=== PATIENT | female | born 1990 | race Caucasian/White ===

== ENCOUNTER 2017-02-18 09:54 | Emergency (ER) | payer BC ==
[2017-02-18 09:57] VITALS: BMI 27.1
[2017-02-18 10:00] VITALS: BP 107/69; PULSE 100; RESP 17; TEMP 97.7; O2SAT 100
--- NOTE | 2017-02-18 10:17 | ED PDOC ---
HPI: Abdomen Time Seen by Provider: 02/18/17 10:06 Chief Complaint (Nursing): Abdominal Pain Additional Complaint(s): Patient is a 26 y/o F, 16 weeks , with confirmed IUP with regular ob/ leadership program associate monitoring in this , presenting with LLQ pain. Patient reports increasing pain over last day. Denies fever, nausea/vomiting, diarrhea/ constipation, vaginal bleeding, vaginal discharge or dysuria. Past Medical History Vital Signs: Last Vital Signs Temp 97.7 F 02/18/17 09:57 Pulse 100 H 02/18/17 09:57 Resp 17 02/18/17 09:57 BP 107/69 02/18/17 09:57 Pulse Ox 100 02/18/17 15:27 - Medical History PMH: Asthma (last attack one year ago), Depression Denies: Chronic Kidney Disease - Family History Family History: States: No Known Family Hx - Home Medications Home Medications: Ambulatory Orders Medication Instructions Recorded ALPRAZolam [Xanax] 0.25 mg PO BID 04/03/16 Dexlansoprazole [Dexilant] 60 mg PO DAILY 04/03/16 Nitrofurantoin Macrocrystals 100 mg PO BID #14 cap 02/18/17 [Macrobid] - Allergies Allergies/Adverse Reactions: Allergies Allergy/AdvReac Type Severity Reaction Status Date / Time diphenhydramine HCl Allergy RASH Verified 04/03/16 12:09 [From Benadryl] Penicillins Allergy RASH Verified 04/03/16 12:08 Review of Systems ROS Statement: Except As Marked, All Systems Reviewed And Found Negative Constitutional: Negative for: Fever, Chills Cardiovascular: Negative for: Chest Pain, Palpitations, Edema, Light Headedness Respiratory: Negative for: Cough, Shortness of Breath, SOB with Exertion Gastrointestinal: Negative for: Nausea, Vomiting, Abdominal Pain, Diarrhea, Constipation Genitourinary Female: Positive for: Pelvic Pain (LLQ). Negative for: Dysuria, Vaginal Discharge, Vaginal Bleeding Neurological: Negative for: Altered Mental Status, Headache Physical Exam - Reviewed Nursing Documentation Reviewed: Yes Vital Signs Reviewed: Yes - Physical Exam Appears: Positive for: Well, Non-toxic Head Exam: Positive for: ATRAUMATIC, NORMAL INSPECTION, NORMOCEPHALIC Skin: Positive for: Normal Color Eye Exam: Positive for: Normal appearance Neck: Positive for: Normal, Painless ROM Cardiovascular/Chest: Positive for: Regular Rate, Rhythm Respiratory: Positive for: Normal Breath Sounds. Negative for: Rhonchi, Stridor , Wheezing Gastrointestinal/Abdominal: Positive for: Soft, Other (gravid abdomen). Negative for: Tenderness, Mass, Distended Back: Positive for: Normal Inspection. Negative for: L CVA Tenderness, R CVA Tenderness Extremity: Positive for: Normal ROM - Laboratory Results Result Diagrams: 02/18/17 10:22 02/18/17 10:22 - ECG O2 Sat by Pulse Oximetry: 100 Medical Decision Making Medical Decision Making: Patient is well appearing. She is complaining of L sided abdominal pain, that could be consistent with round ligament pain. She has no vaginal bleeding. Will get ultrasound and evaluate for uti. On reevaluation, K low and replacement ordered. Otherwise labs grossly normal. UA negative for leukocytes and nitrates but positive rare bacteria and due to will treat. UTERUS: Gestational sac: A single viable intrauterine gestation identified with average ultrasonic age of 17 weeks 2 days versus 16 weeks 5 days based on prior LMP. Heart rate: 143 bpm. age (Ultrasound estimated): As above [place]-gestational hemorrhage: None apparent. Date of delivery (Ultrasound estimated) : 07/27/2017. An anterior fundal placenta is appreciated without previa or related hemorrhage. CERVIX: Long and closed. No cervical abnormality seen. RIGHT OVARY: Not identified however no suspicious right adnexal finding is appreciated. LEFT OVARY: Measures 2.6 x 1.7 x 2.1 cm. No solid mass. Normal spectral analysis with venous and arterial blood flow captured. No torsion pattern appreciable. FREE FLUID: None. OTHER FINDINGS: None. IMPRESSION: 1. A single viable intrauterine gestation is identified with average ultrasonic age of 17 weeks 2 days. No definite placental hemorrhage or previa appreciable. 2. Unremarkable left ovary with no sonographic pattern to suggest torsion. 3. Right ovary is not identified however there are no suspicious right adnexal findings at this time. On reevaluation, patient feels well and continues to have soft NT/ND abdomen. She was given detailed return instructions. Disposition - Clinical Impression Clinical Impression: Abdominal pain during , UTI (urinary tract infection) - Disposition Disposition: Routine/Home Disposition Time: 13:35 Condition: GOOD Additional Instructions: Follow up with lead systems engineer within 2 days. Return to ED if condition worsens. Take full course of antibiotics. Prescriptions: Nitrofurantoin Macrocrystals [Macrobid] 100 mg PO BID #14 cap Instructions: Abdominal Pain in (ED) Forms: [facility] (Mexican), [facility] ED School/Work Excuse
[2017-02-18] MEDS: Sodium Chloride 0.9% 1,000 ML IV SCH (10:26)
[2017-02-18 10:32] LABS: BASO # 0.1 K/uL (0.0-0.2); BASO % 0.6 % (0.0-2.0); EOS # 0.1 K/uL (0.0-0.7); EOS % 0.8 % (0.0-4.0); HEMATOCRIT 32.7 % (34.0-47.0); LYMPH # 1.4 K/uL (1.0-4.3); LYMPH % 15.9 % (20.0-40.0); MEAN CELL VOLUME 84.2 fl (81.0-99.0); MEAN CORPUSCULAR HEMOGLOBIN 27.8 pg (27.0-31.0); MEAN PLATELET VOLUME 7.2 fl (7.2-11.7); MONO # 0.6 K/uL (0.0-0.8); NEUT # 6.8 K/uL (1.8-7.0); NEUT % 75.7 % (50.0-75.0); RED CELL DISTRIBUTION WIDTH 13.8 % (11.5-14.5)
[2017-02-18 10:55] LABS: ALB/GLOB RATIO 1.2 (1.0-2.1); ALKALINE PHOSPHATASE 57 U/L (38-126); ALT/SGPT 36 U/L (9-52); AST/SGOT 37 U/L (14-36); BILIRUBIN,TOTAL 0.2 mg/dl (0.2-1.3); BLOOD UREA NITROGEN 9 mg/dl (7-17); CALCIUM 9.3 mg/dL (8.4-10.2); CARBON DIOXIDE 21 mmol/L (22-30); CHLORIDE 106 mmol/L (98-107); GFR AFRICAN-AMERICAN > 60; GLUCOSE,RANDOM 58 mg/dL (65-105); LIPASE 39 U/L (23-300); POTASSIUM 3.3 MMOL/L (3.6-5.0); SODIUM 136 mmol/l (132-148)
[2017-02-18 10:55] LABS: RBC URINE 5 /hpf (0-3); URINE BACTERIA RARE (<OCC); URINE BILIRUBIN NEGATIVE (NEGATIVE); URINE COLOR YELLOW (YELLOW); URINE GLUCOSE (UA) NEG (Normal); URINE KETONE TRACE mg/dL (NEGATIVE); URINE LEUKOCYTE ESTERASE NEG Leu/uL (Negative); URINE PROTEIN NEGATIVE (NEGATIVE); URINE UROBILINOGEN 0.2-1.0 mg/dL (0.2-1.0); WBC URINE 2 /hpf (0-5)
[2017-02-18 10:56] LABS: URINE BLOOD SMALL (NEGATIVE)
--- NOTE | 2017-02-18 13:36 | US ---
PROCEDURE: OB Pelvic Ultrasound HISTORY: 16 weeks , LLQ, abdominal pain LMP reported 07/21/2017. COMPARISON: None available. FINDINGS: UTERUS: Gestational sac: A single viable intrauterine gestation identified with average ultrasonic age of 17 weeks 2 days versus 16 weeks 5 days based on prior LMP. Heart rate: 143 bpm. age (Ultrasound estimated): As above [place]-gestational hemorrhage: None apparent. Date of delivery (Ultrasound estimated) : 07/27/2017. An anterior fundal placenta is appreciated without previa or related hemorrhage. CERVIX: Long and closed. No cervical abnormality seen. RIGHT OVARY: Not identified however no suspicious right adnexal finding is appreciated. LEFT OVARY: Measures 2.6 x 1.7 x 2.1 cm. No solid mass. Normal spectral analysis with venous and arterial blood flow captured. No torsion pattern appreciable. FREE FLUID: None. OTHER FINDINGS: None. IMPRESSION: 1. A single viable intrauterine gestation is identified with average ultrasonic age of 17 weeks 2 days. No definite placental hemorrhage or previa appreciable. 2. Unremarkable left ovary with no sonographic pattern to suggest torsion. 3. Right ovary is not identified however there are no suspicious right adnexal findings at this time. Preliminary discussion of the findings is been made by telephone with Dr. Viramontes 02/18/2017 12:59 p.m..
[2017-02-18] MEDS: Potassium Chloride 20 mEq ER Tab PO STA (13:46)
== END 2017-02-18 13:54 | disposition home or self-care (01) ==
LOC: H.ER 09:54
DX: O23.42 Unspecified infection of urinary tract in pregnancy, second trimester (principal); Z88.0 Allergy status to penicillin
CPT/HCPCS: 76815; 80053; 81003; 81025; 83690; 85025; 99282; J7040

== ENCOUNTER 2017-03-31 20:12 | Emergency (ER) | payer BC ==
[2017-03-31 20:12] VITALS: BMI 27.1
[2017-03-31 20:21] VITALS: TEMP 98.5; O2SAT 100
[2017-03-31 21:08] VITALS: RESP 18
[2017-03-31] MEDS ORDERED: Albuterol 0.083% Inhal Sol (2.5 mg/3 mL) UD INH ONE (21:32)
--- NOTE | 2017-03-31 21:53 | ED PDOC ---
HPI: CCC, URI, Sore Throat Time Seen by Provider: 03/31/17 20:30 Chief Complaint (Nursing): Shortness Of Breath Chief Complaint (Provider): Nasal congestion History Per: Patient History/Exam Limitations: no limitations Have you had recent travel within the past 21 days to any of the following countries: [place], [place], [place] or [place]?: No Onset/Duration Of Symptoms: Days Current Symptoms Are (Timing): Still Present Location Of Pain: Sinus/es Sick Contacts (Context): None Associated Symptoms: Fever (subjective), Cough, Nasal Congestion Additional History Per: Patient Additional Complaint(s): 26yo female, currently 22 weeks , past medical history of asthma, presents to the ED for evaluation of cold and nasal congestion associated with slight cough for the past couple days. Patient reports she has a subjective fever as well; she denies any chest pain, shortness of breath, vomiting or diarrhea. Patient also denies any abdominal pain, pelvic pain, urinary symptoms , vaginal bleeding. Patient also states she took Tylenol around 1830 today with mild resolution of her symptoms. She offers no other medical complaints. Past Medical History Reviewed: Historical Data, Nursing Documentation, Vital Signs Vital Signs: Last Vital Signs Temp 98.5 F 03/31/17 20:16 Pulse 96 H 04/01/17 00:00 Resp 18 04/01/17 00:00 BP 110/68 04/01/17 00:00 Pulse Ox 100 04/01/17 00:00 - Medical History PMH: Asthma (last attack one year ago), Depression Denies: Chronic Kidney Disease - Surgical History Surgical History: No Surg Hx - Family History Family History: States: No Known Family Hx - Social History Current smoker - smoking cessation education provided: No Ex-Smoker (has not smoked in the last 12 months): No Alcohol: None Drugs: Denies - Home Medications Home Medications: Ambulatory Orders Medication Instructions Recorded ALPRAZolam [Xanax] 0.25 mg PO BID 04/03/16 Dexlansoprazole [Dexilant] 60 mg PO DAILY 04/03/16 Nitrofurantoin Macrocrystals 100 mg PO BID #14 cap 02/18/17 [Macrobid] - Allergies Allergies/Adverse Reactions: Allergies Allergy/AdvReac Type Severity Reaction Status Date / Time diphenhydramine HCl Allergy RASH Verified 04/03/16 12:09 [facility] Penicillins Allergy RASH Verified 04/03/16 12:08 Review of Systems ROS Statement: Except As Marked, All Systems Reviewed And Found Negative Constitutional: Positive for: Fever (tactile) ENT: Positive for: Nose Congestion Cardiovascular: Negative for: Chest Pain Respiratory: Positive for: Cough. Negative for: Shortness of Breath Gastrointestinal: Negative for: Abdominal Pain Genitourinary Female: Negative for: Vaginal Discharge, Vaginal Bleeding Physical Exam - Reviewed Nursing Documentation Reviewed: Yes Vital Signs Reviewed: Yes - Physical Exam Appears: Positive for: Non-toxic, No Acute Distress Head Exam: Positive for: ATRAUMATIC, NORMAL INSPECTION, NORMOCEPHALIC Skin: Positive for: Warm, Dry Eye Exam: Positive for: Normal appearance ENT: Positive for: Nasal Congestion Neck: Positive for: Supple Cardiovascular/Chest: Positive for: Regular Rate, Rhythm Respiratory: Positive for: Normal Breath Sounds. Negative for: Wheezing, Respiratory Distress Gastrointestinal/Abdominal: Positive for: Normal Exam (gravid abdomen), Soft. Negative for: Tenderness Neurologic/Psych: Positive for: Alert, Oriented. Negative for: Motor/Sensory Deficits - ECG O2 Sat by Pulse Oximetry: 100 (RA) Pulse Ox Interpretation: Normal Medical Decision Making Medical Decision Making: Time: 2131 Impression: URI Plan: -- Duoneb 2.5 mg INH Reassess Time: 11:42 --Patient reports feeling better --On reexamination patient is no longer wheezing --She will use albuterol pump she has at home when she needs --Patient is stable for discharge home and will follow up with PMD Scribe Attestation: Documented by Tresa Mckay and Joss Ramirez acting as a scribe for Jose Treadwell MD. Provider Attestation: All medical record entries made by the Scribe were at my direction and personally dictated by me. I have reviewed the chart and agree that the record accurately reflects my personal performance of the history, physical exam, medical decision making, and the department course for this patient. I have also personally directed, reviewed, and agree with the discharge instructions and disposition. Disposition - Clinical Impression Clinical Impression: Common cold - Patient ED Disposition Is Patient to be Admitted: No Counseled Patient/Family Regarding: Studies Performed, Diagnosis, Need For Followup - Disposition Disposition: Routine/Home Disposition Time: 22:00 Condition: IMPROVED Additional Instructions: follow up with your primary doctor in 1-2 days take tylenol for pain as needed return to the ED with any worsening or concerning symptoms Instructions: Cold Symptoms (ED) Forms: [facility] (Gambian), [facility] ED School/Work Excuse - POA Present On Arrival: None
[2017-03-31] MEDS ORDERED: Albuterol 0.083% Inhal Sol (2.5 mg/3 mL) UD ONE (22:17)
[2017-04-01 00:01] VITALS: BP 110/68; PULSE 96
== END 2017-04-01 00:01 | disposition home or self-care (01) ==
LOC: H.ER 20:12
DX: J00 Acute nasopharyngitis [common cold] (principal); F32.9 Major depressive disorder, single episode, unspecified; Z88.0 Allergy status to penicillin; J45.909 Unspecified asthma, uncomplicated; Z33.1 Pregnant state, incidental

== ENCOUNTER 2017-06-07 05:34 | Emergency (ER) | payer BC ==
[2017-06-07 05:35] VITALS: BMI 27.1
[2017-06-07 05:51] VITALS: TEMP 98.6; O2SAT 100
[2017-06-07] MEDS ORDERED: Albuterol-Ipratrop 3 mg / 0.5 (3 ml) UD INH STA ×2 (06:01→07:29)
--- NOTE | 2017-06-07 06:26 | ED PDOC ---
HPI: General Adult Time Seen by Provider: 06/07/17 05:53 Chief Complaint (Nursing): Chest Pain Chief Complaint (Provider): Chest Pain History Per: Patient History/Exam Limitations: no limitations Onset/Duration Of Symptoms: Days (x 3) Current Symptoms Are (Timing): Still Present Additional Complaint(s): Alma is a 26 year old female (currently 32 weeks ), with a past medical history of asthma, who presents to the emergency department complaining of chest tightness, cough and shortness of breath ongoing for 3 days. Denies fever, weakness and hematemesis. Patient states she felt baby move this morning. Been using albuertol pump with minimal improvement. PMD: Ayla Miranda Past Medical History Reviewed: Historical Data, Nursing Documentation, Vital Signs Vital Signs: Last Vital Signs Temp 98.6 F 06/07/17 05:48 Pulse 102 H 06/07/17 05:48 Resp 18 06/07/17 05:48 BP 122/64 06/07/17 05:48 Pulse Ox 100 06/07/17 06:36 - Medical History PMH: Asthma (last attack one year ago), Depression Denies: Chronic Kidney Disease - Surgical History Surgical History: No Surg Hx - Family History Family History: States: Unknown Family Hx - Social History Current smoker - smoking cessation education provided: No - Home Medications Home Medications: Ambulatory Orders Medication Instructions Recorded ALPRAZolam [Xanax] 0.25 mg PO BID 04/03/16 Dexlansoprazole [Dexilant] 60 mg PO DAILY 04/03/16 Nitrofurantoin Macrocrystals 100 mg PO BID #14 cap 02/18/17 [Macrobid] - Allergies Allergies/Adverse Reactions: Allergies Allergy/AdvReac Type Severity Reaction Status Date / Time diphenhydramine HCl Allergy RASH Verified 06/07/17 05:51 [From Benadryl] Penicillins Allergy RASH Verified 06/07/17 05:51 Review of Systems ROS Statement: Except As Marked, All Systems Reviewed And Found Negative Constitutional: Negative for: Fever, Weakness Cardiovascular: Positive for: Other (Chest Tightness) Respiratory: Positive for: Cough, Shortness of Breath Gastrointestinal: Negative for: Abdominal Pain, Hematemesis Physical Exam - Reviewed Nursing Documentation Reviewed: Yes Vital Signs Reviewed: Yes - Physical Exam Appears: Positive for: Well, Non-toxic, No Acute Distress Head Exam: Positive for: ATRAUMATIC, NORMAL INSPECTION, NORMOCEPHALIC Skin: Positive for: Normal Color, Warm, DRY Eye Exam: Positive for: EOMI, Normal appearance, PERRL ENT: Positive for: Normal ENT Inspection Neck: Positive for: Normal Cardiovascular/Chest: Positive for: Regular Rate, Rhythm Respiratory: Positive for: Wheezing (Lungs-traced wheezing bilaterally), Other ( Good air entry). Negative for: Respiratory Distress Gastrointestinal/Abdominal: Positive for: Tenderness (Abdominal Fundus) Back: Positive for: Normal Inspection Extremity: Positive for: Normal ROM. Negative for: Pedal Edema, Calf Tenderness Neurologic/Psych: Positive for: Alert, Oriented - ECG ECG Rhythm: Positive for: Sinus Tachycardia (rate [address] changes) O2 Sat by Pulse Oximetry: 100 (RA) Pulse Ox Interpretation: Normal Medical Decision Making Medical Decision Making: Time: 05:52 Will check blood work. Initiate Duoneb. Will attempt to avoid X-Ray radiation explosure right now. Plan: - EKG - B-Type Natriuretic Peptide - CMP - Troponin I - CBC - Partial Thromboplastin Time - Prothrombin Time - Duoneb 3 mg/05mg (3 ml) UD - Peak Flow Pre/Post Treatment endorsed Dr Sawyer 715am pending re-eval, labs, US report and dispo likely [facility] for monitoring. Scribe Attestation: Documented by Mahin Williamson, acting as a scribe for Gerard Poe III, DO Provider Scribe Attestation: All medical record entries made by the Scribe were at my direction and personally dictated by me. I have reviewed the chart and agree that the record accurately reflects my personal performance of the history, physical exam, medical decision making, and the department course for this patient. I have also personally directed, reviewed, and agree with the discharge instructions and disposition. Disposition - Clinical Impression Clinical Impression: Dyspnea, Asthma - Patient ED Disposition Is Patient to be Admitted: Transfer of Care - Disposition Disposition: Transfer of Care Disposition Time: 07:10 Condition: STABLE Forms: [facility] (U[place]ayan) Patient Signed Over To: Emilie Cortez
[2017-06-07] MEDS ORDERED: Albuterol-Ipratrop 3 mg / 0.5 (3 ml) UD ONE ×2 (07:26→08:10)
--- NOTE | 2017-06-07 07:43 | ED PDOC ---
- Laboratory Results Result Diagrams: 06/07/17 08:00 06/07/17 08:00 - ECG O2 Sat by Pulse Oximetry: 100 (RA) Pulse Ox Interpretation: Normal Medical Decision Making Medical Decision Makin:00 Patient signed over from Gerard Poe DO to me, Emilie Cortez MD pending US Doppler, re-assessment after steroids, blood work evaluation, and eventual disposition. US Doppler FINDINGS: COMMON FEMORAL VEIN: Right CFV: Unremarkable. Left CFV: Unremarkable. SUPERFICIAL FEMORAL VEIN: Right SFV: Unremarkable. Left SFV: Unremarkable. POPLITEAL VEIN: Right Popliteal: Unremarkable. Left Popliteal: Unremarkable. POSTERIOR TIBIAL VEIN: Right PTV: Unremarkable. Left PTV: Unremarkable. OTHER FINDINGS: None. IMPRESSION: No evidence of deep venous thrombosis. 10:49 Pt has improved significantly and has no complaints. Scribe Attestation: Documented by Abi Villarreal, acting as a scribe for Emilie Cortez MD. Provider Scribe Attestation: All medical record entries made by the Scribe were at my direction and personally dictated by me. I have reviewed the chart and agree that the record accurately reflects my personal performance of the history, physical exam, medical decision making, and the department course for this patient. I have also personally directed, reviewed, and agree with the discharge instructions and disposition. Disposition Doctor Will See Patient In The: Office Counseled Patient/Family Regarding: Studies Performed, Diagnosis, Need For Followup - Clinical Impression Clinical Impression: Dyspnea, Asthma - POA Present On Arrival: None - Disposition Referrals: [facility] [Outside] Disposition: Routine/Home Disposition Time: 10:50 Condition: GOOD Additional Instructions: Take your medications as instructed. Follow up with your PCP in 2-3 days. Prescriptions: Albuterol 0.083% [Albuterol Sulfate 3 Ml] 3 ml IH Q4 PRN #20 neb PRN Reason: Wheezing Fluticasone/Salmeterol 250/50 [Advair Diskus] 1 puff IH Q12 #1 inh Mask, Face [Nebulizer Aerosol Mask Adult] 1 dev INH PRN #1 dev Nebulizer Accessories [Adult Aerosol Mask] 1 each MC ONCE #1 each Nebulizer Accessories [A.i.r.s. Nebulizer] 1 each MC ONCE #1 kit Instructions: Asthma (ED) Forms: [facility] ED School/Work Excuse
[2017-06-07 08:35] LABS: BASO # 0.1 K/uL (0.0-0.2); BASO % 0.6 % (0.0-2.0); EOS # 0.2 K/uL (0.0-0.7); EOS % 1.6 % (0.0-4.0); HEMATOCRIT 30.8 % (34.0-47.0); LYMPH # 0.7 K/uL (1.0-4.3); LYMPH % 7.5 % (20.0-40.0); MEAN CELL VOLUME 84.4 fl (81.0-99.0); MEAN CORPUSCULAR HEMOGLOBIN 27.1 pg (27.0-31.0); MEAN CORPUSCULAR HGB CONC 32.1 g/dL (33.0-37.0); MONO # 0.9 K/uL (0.0-0.8); MONO % 9.1 % (0.0-10.0); NEUT # 8.1 K/uL (1.8-7.0); NEUT % 81.2 % (50.0-75.0); NRBC % 0.1 % (0.0-0.0); PLATELET COUNT 241 K/uL (130-400); RED CELL DISTRIBUTION WIDTH 13.2 % (11.5-14.5); WHITE BLOOD COUNT 9.9 K/uL (4.8-10.8)
[2017-06-07 08:48] LABS: PARTIAL THROMBOPLASTIN TIME 26.5 Seconds (25.6-37.1)
[2017-06-07 09:02] LABS: ALKALINE PHOSPHATASE 112 U/L (38-126); ALT/SGPT 35 U/L (9-52); AST/SGOT 29 U/L (14-36); BILIRUBIN,TOTAL < 0.1 mg/dl (0.2-1.3); BLOOD UREA NITROGEN 4 mg/dl (7-17); CALCIUM 8.5 mg/dL (8.4-10.2); CARBON DIOXIDE 22 mmol/L (22-30); CHLORIDE 105 mmol/L (98-107); GFR AFRICAN-AMERICAN > 60; GLUCOSE,RANDOM 83 mg/dL (65-105); POTASSIUM 3.5 MMOL/L (3.6-5.0); SODIUM 137 mmol/l (132-148); TOTAL PROTEIN 6.6 G/DL (6.3-8.2)
--- NOTE | 2017-06-07 09:46 | US ---
PROCEDURE: Bilateral lower extremity venous duplex Doppler. HISTORY: ro DVT COMPARISON: None available. TECHNIQUE: Bilateral common femoral, superficial femoral, popliteal and posterior tibial veins were evaluated. Flow was assessed with color Doppler, compressibility, assessment of phasic flow and augmentation response. FINDINGS: COMMON FEMORAL VEIN: Right CFV: Unremarkable. Left CFV: Unremarkable. SUPERFICIAL FEMORAL VEIN: Right SFV: Unremarkable. Left SFV: Unremarkable. POPLITEAL VEIN: Right Popliteal: Unremarkable. Left Popliteal: Unremarkable. POSTERIOR TIBIAL VEIN: Right PTV: Unremarkable. Left PTV: Unremarkable. OTHER FINDINGS: None. IMPRESSION: No evidence of deep venous thrombosis.
[2017-06-07 10:31] LABS: NEUTROPHIL 80 % (42-75); TOTAL CELLS COUNTED 100
[2017-06-07 11:17] VITALS: BP 111/69; PULSE 113
[2017-06-07 11:18] VITALS: RESP 14
--- NOTE | 2017-06-08 10:03 | CARD ---
APPROVED REPORT EKG Measurement Heart [id number] <Conclusion> Sinus tachycardia Otherwise normal ECG
== END 2017-06-07 11:25 | disposition home or self-care (01) ==
LOC: H.ER 05:34
DX: J45.909 Unspecified asthma, uncomplicated (principal); O99.513 Diseases of the respiratory system complicating pregnancy, third trimester; Z3A.32 32 weeks gestation of pregnancy; Z88.0 Allergy status to penicillin; F32.9 Major depressive disorder, single episode, unspecified
CPT/HCPCS: 80053; 83880; 84484; 85025; 85610; 85730; 93005; 93970; 94640; 96374; 99283; J2930

== ENCOUNTER 2017-06-30 13:28 | Inpatient (IN) | payer BC ==
[2017-06-30 14:53] VITALS: BMI 33.5
[2017-06-30 15:22] LABS: SQUAMOUS EPITHIAL 3 /hpf (0-5); URINE AMORPHOUS SEDIMENT RARE /ul (<OCC); URINE BACTERIA OCC (<OCC); URINE BILIRUBIN NEGATIVE (NEGATIVE); URINE BLOOD NEGATIVE (NEGATIVE); URINE CLARITY SLIGHTY-CLOUDY (Clear); URINE COLOR YELLOW (YELLOW); URINE GLUCOSE (UA) NEG (Normal); URINE LEUKOCYTE ESTERASE NEG Leu/uL (Negative); URINE NITRATE NEGATIVE (NEGATIVE); URINE PROTEIN NEGATIVE (NEGATIVE); URINE UROBILINOGEN 0.2-1.0 mg/dL (0.2-1.0)
--- NOTE | 2017-06-30 15:41 | OBHP ---
Datetime: 06/30/2017 14:30 IP Adm Impression: , intrauterine IP Admit Plan: Observation/Evaluation Admit Comment, IP Provider: 26 yo F ega 35.4 presents to the [facility] with suprapubic pressure inte rmittent beginning at 08:30 every 20 minutes lasting seconds. pain is rated 7/10 non radiating. Share s hx of UTI +:FM, ctx denies: vb/lof, CP/SOB/N/V/dysuria pnc: Dr. Gan gyne: denies hx of sti, pap neg mhx: asthma famhx: dm, htn surg: none soc: denies: smoking, alcohol, illicit drugs rx: pnv, nebulizer allergies: benadryl (rash); penicllin (rash) general: aaox3 cardiac: s1s2 no murmur lungs: clearbilaterally, no wheezing abdo: gravid, nontender, active bowel sounds 37 iup 35.4 -ua, 1 L LR case dw Dr. Sveta Ogden MD PGY1. Pt assessed with Resident. Pt reports continous contractions with pain scale of 7/10. Contractions Q 2-3, FHR- Category 1, Cx- 1-2/60/-3, Vtx felt Assessment: IUP at 35.4 with contractions. R/o UTI Plan: UA IV Hydration. Observe and re assess. Pelvic Type - PN: Adequate Extremities - PN: Normal Abdomen - PN: Normal Back - PN: Normal Breast - PN: Not Done Lungs - PN: Normal Heart - PN: Normal Thyroid - PN: Not Done Neurologic - PN: Normal HEENT - PN: Normal General - PN: Normal Presentation-Admit: Vertex FHR - Baseline A Provider: 130 Contraction Comments Provider: Q 2-3 Comments, ACOG Physical Exam: Abd:Soft, NT, BS- present Gestation - Est Wks by US: 35.4 EGA AdmitDate IP: 35.4 Vital Signs Provider: Reviewed; Within Normal Limits IP Chief Complaint: Uterine contractions; Maternal discomfort NICHD Variability Prov Fetus A: Moderate 6-25bpm NICHD Accel Fetus A IP Provider: 15X15 FHR Category Provider Fetus A: Category I NICHD Decel Fetus A IP Provider: None Dilatation, Provider: 1-2 Effacement, Provider: 70 Station, Provider: -3 Genitourinary Exam: Normal DTRs - PN: Not Done
[2017-06-30] MEDS ORDERED: Betamethasone Soluspan 30 mg/5mL Inj Susp IM ONE (16:21)
[2017-06-30] MEDS: Lactated Ringer's 1,000 ML IV SCH ×3 (20:00→23:00)
[2017-06-30 20:35] LABS: BASO % 0.6 % (0.0-2.0); EOS % 0.5 % (0.0-4.0); HEMOGLOBIN 10.7 g/dL (12.0-16.0); LYMPH # 1.3 K/uL (1.0-4.3); LYMPH % 14.8 % (20.0-40.0); MEAN CELL VOLUME 83.1 fl (81.0-99.0); MEAN CORPUSCULAR HEMOGLOBIN 26.6 pg (27.0-31.0); MEAN CORPUSCULAR HGB CONC 32.1 g/dL (33.0-37.0); MEAN PLATELET VOLUME 8.6 fl (7.2-11.7); MONO # 0.6 K/uL (0.0-0.8); MONO % 7.1 % (0.0-10.0); NEUT # 6.9 K/uL (1.8-7.0); RBC 4.01 Mil/uL (3.80-5.20); RED CELL DISTRIBUTION WIDTH 13.8 % (11.5-14.5); WHITE BLOOD COUNT 8.9 K/uL (4.8-10.8)
[2017-06-30] MEDS: Clindamycin 600mg/50ml NS 600 MG/50 ML BAG IVPB SCH (20:42)
[2017-06-30 20:49] LABS: ALBUMIN 3.6 g/dL (3.5-5.0); ALT/SGPT 24 U/L (9-52); AST/SGOT 28 U/L (14-36); BLOOD UREA NITROGEN 5 mg/dl (7-17); CALCIUM 9.2 mg/dL (8.4-10.2); GFR AFRICAN-AMERICAN > 60; GFR NON-AFRICAN AMERICAN > 60
[2017-06-30] MEDS ORDERED: Bupivacaine HCl 0.25% PF (10 ml) Inj ONE (20:52)
[2017-06-30] MEDS ORDERED: Fentanyl/Bupivacaine HCl 250 ML EPI ONE ×2 (20:52→21:15)
--- NOTE | 2017-07-01 00:18 | OBADHP ---
Datetime: 06/30/2017 18:30 Admit Comment, IP Provider: Pt reports increasing contractions with increasing in tensity of the mar n. She cannot bear the pain and requests pain control. Denies VB or LOF TOCO - Q 2-3mins, FHR- Category 1, Vtx presentation. Cervix: 3-4cm/60/-2 Assessment: IUP at 35wks in Active Labor Reassuring Heart Rate. Plan: Admit to LND. Monitor for the progress of Labor. Clindamycin for GBS prophylaxis. Pelvic Type - PN: Adequate Extremities - PN: Normal Abdomen - PN: Normal Back - PN: Normal Breast - PN: Normal Lungs - PN: Normal Heart - PN: Normal Thyroid - PN: Normal Neurologic - PN: Normal HEENT - PN: Normal General - PN: Normal Presentation-Admit: Vertex FHR - Baseline A Provider: 130 Membranes, Provider: Intact Gestation - Est Wks by US: 35.4 Vital Signs Provider: Reviewed IP Chief Complaint: Uterine contractions; Maternal discomfort NICHD Variability Prov Fetus A: Moderate 6-25bpm NICHD Accel Fetus A IP Provider: [id number] FHR Category Provider Fetus A: Category I NICHD Decel Fetus A IP Provider: None Dilatation, Provider: 4 Effacement, Provider: 70 Station, Provider: -3 Genitourinary Exam: Normal DTRs - PN: Normal EGA AdmitDate IP: 35.4 IP Adm Impression: , intrauterine ; Active labor IP Admit Plan: Admit to unit; Initiate labor protocol Datetime: 06/30/2017 14:30 Contraction Comments Provider: Q 2-3 Comments, ACOG Physical Exam: Abd:Soft, NT, BS- present
--- NOTE | 2017-07-01 00:22 | OBPN ---
Datetime: 07/01/2017 00:07 IP Progress Impression: Normal progression of labor; Reassuring heart rate IP Procedures: Sterile Vag Exam IP Progress Plan: Continue present management; Anesthesia consult Membranes, Provider: Intact Contraction Comments Provider: Q 2-3 FHR - Baseline A Provider: 120 Gestation - Est Wks by US: 35.5 Presentation-Admit: Vertex IP Progress Note Comment: IUP at 35.5wks in Labor. Continue with antibiotics Monitoring the progress of labor. Vital Signs Provider: Reviewed NICHD Accel Fetus A IP Provider: 15X15 FHR Category Provider Fetus A: Category I NICHD Variability Prov Fetus A: Moderate 6-25bpm Dilatation, Provider: 4-5 Effacement, Provider: 60 Station, Provider: -2 NICHD Decel Fetus A IP Provider: None
[2017-07-01] MEDS: Lactated Ringer's 1,000 ML IV SCH ×3 (01:55→12:30)
[2017-07-01] MEDS: Clindamycin 600mg/50ml NS 600 MG/50 ML BAG IVPB SCH ×2 (04:48→12:15)
[2017-07-01] MEDS ORDERED: Betamethasone Soluspan 30 mg/5mL Inj Susp IM ONE (05:00)
--- NOTE | 2017-07-01 08:30 | OBPN ---
Datetime: 07/01/2017 05:04 IP Progress Impression: Normal progression of labor; Reassuring heart rate IP Procedures: Sterile Vag Exam IP Progress Plan: Continue present management Membranes, Provider: Intact Contraction Comments Provider: Q 3-4 FHR - Baseline A Provider: 140 Gestation - Est Wks by US: 35.5 Presentation-Admit: Vertex IP Progress Note Comment: IUP at 35+wks labor Celostone for lung Maturity On clindamycin Plan: Second dose of betamethazone Continue monitoring the progress of labor. NICHD Accel Fetus A IP Provider: 15X15 FHR Category Provider Fetus A: Category I NICHD Variability Prov Fetus A: Moderate 6-25bpm Dilatation, Provider: 4-5 Effacement, Provider: 70 Station, Provider: -2 NICHD Decel Fetus A IP Provider: None
[2017-07-01] MEDS ORDERED: Oxytocin 30 UNITS in Sodium Chloride 0.9% 500 ML IV SCH (09:00)
[2017-07-01] MEDS ORDERED: guaiFENesin 100 mg/5 ml Syrup UD PO PRN (09:17)
--- NOTE | 2017-07-01 09:50 | OBPN ---
Datetime: 07/01/2017 08:40 IP Progress Impression: Reassuring heart rate; Reactive non-stress test; Rupture of membranes IP Informed Consent Obtain: Vaginal Delivery; Risks, Benefits and Alternatives Discussed IP Progress Plan: Augmentation Pool Provider: Positive Membranes, Provider: Ruptured Amniotic Fluid Color, Provider: Clear Contraction Comments Provider: Occasional FHR - Baseline A Provider: 120 Presentation-Admit: Vertex IP Progress Note Comment: OB Hospitalist on-call She was admitted for PTL progressed to 4cm...she was given Antibiotics, Steroids and epidural last night. She feels better. A: Latent phase of labor PTL/SROM PLAN: condition and plan explained to pt. Disucsed nipple stimulatoin and pitocin augmentatoin NICHD Accel Fetus A IP Provider: [id number] FHR Category Provider Fetus A: Category I NICHD Variability Prov Fetus A: Moderate 6-25bpm Dilatation, Provider: 4 Effacement, Provider: 80 Station, Provider: -1 NICHD Decel Fetus A IP Provider: None
--- NOTE | 2017-07-01 12:40 | OBPN ---
Datetime: 07/01/2017 12:30 IP Progress Impression: Reassuring heart rate IP Informed Consent Obtain: Vaginal Delivery; Risks, Benefits and Alternatives Discussed IP Procedures: Intrauterine Pressure Catheter; Amnio Infusion Pool Provider: Positive Membranes, Provider: Ruptured Amniotic Fluid Color, Provider: Clear Contraction Comments Provider: occ FHR - Baseline A Provider: 120 Presentation-Admit: Vertex IP Progress Note Comment: Notified that Pitocin was at 2miu/h...early deceles noted...SVDE 4cm PLAN : IUPC/amnioinfusion/O2 left lateral/Pitocin off Condition explained to pt. She understands. agreed to above NICHD Accel Fetus A IP Provider: [id number] FHR Category Provider Fetus A: Category II NICHD Variability Prov Fetus A: Moderate 6-25bpm Dilatation, Provider: 4 Effacement, Provider: 90 Station, Provider: -1 NICHD Decel Fetus A IP Provider: Early
[2017-07-01] MEDS ORDERED: Sodium Chloride 0.9% 1,000 ML IV SCH (12:45)
[2017-07-01] MEDS ORDERED: Lidocaine 1% Inj (20ml) ONE (14:07)
[2017-07-01] MEDS ORDERED: Benzocaine/Menthol SPRAY TOP PRN (15:23)
[2017-07-01] MEDS ORDERED: Oxycodone/Acetaminophen 5/325 mg Tab PO PRN (15:23)
--- NOTE | 2017-07-01 15:37 | OBDS ---
DELIVERY PERSONNEL Nurse Power Line Installer Certified: na Delivery Doctor: Dr Basurto Scrmanuel Nurse: chaya Managing Consultant: Odilia Delong RNC Anesthesiologist: Dr. Venegas Welcome Hostess: chaya Resident: chaya MATERNAL INFORMATION Delivery Anesthesia: Epidural Medications in Delivery: pitocin Estimated Blood Loss (ml): 200cc Placenta Cultured: No RN Comments: to alive baby boy ; 9/9, Dr Brasher in attendance;uneventful delievry. Provider Comments: Over intact perineum, of live from [facility] presentation. Pitocin was of f and IUPC removed when she was pushing. was crying spontaneously and bulb suctioned. Skin to skin was done with mother. Peds in attendance. She remained stable EBL 200cc LABOR SUMMARY EDC: 07/31/2017 00:00 No. Babies in Womb: 1 Attempted: No Labor Anesthesia: Epidural LABOR INFORMATION Onset of Labor: 06/30/2017 19:00 Complete Dilatation: 07/01/2017 14:00 Other Ripening Agents: na Oxytocin: Augmentation Group B Beta Strep: Not Done (Annotations: md dunlap and has ordered clinda 600/50ml ) Antibiotics # of Doses: 3 Antibiotics Time of Last Dose: 1215 Steroids Given: Full Course Reason Steroids Not Administered: Indication Other Reason Not Administered: na MEMBRANES Membranes Rupture Method: Spontaneous Rupture of Membranes: 07/01/2017 08:40 Length of Rupture (hrs): 6.25 Amniotic Fluid Color: Clear Amniotic Fluid Amount: Small Amniotic Fluid Odor: Normal STAGES OF LABOR Stage 1 hrs: 19 Stage 1 min: 0 Stage 2 hrs: 0 Stage 2 min: 55 Stage 3 hrs: 0 Stage 3 min: 12 Total Time in Labor hrs: 20 Total Time in Labor min: 7 VAGINAL DELIVERY Episiotomy: None Laceration Extension: Second Degree Laceration Type: Perineal Other Laceration: na Laceration Repair: Yes Laceration Repair Note: 1% Lidocaine was infiltrated (3cc). 2.0 Vicryl Rapide suture was used to re pair perineal laceration Initial Vag Sponge Count: 6 Final Vag Sponge Count: 6 Initial Vag Sharps Count: 2 Final Vag Sharps Count: 2 Sponge Count Correct: Yes Sharps Count Correct: Yes Count Comment: correct count BABY A INFORMATION Delivery Date/Time: 07/01/2017 14:55 Method of Delivery: Vaginal Born in Route : No : N/A Forceps: N/A Vacuum Extraction: N/A Shoulder Dystocia : No SHOULDER DYSTOCIA BABY A Infant Delivery Date/Time: 07/01/2017 14:55 PRESENTATION/POSITION BABY A Presentation: Cephalic Cephalic Presentation: Vertex Vertex Position: Left Occipital Anterior Breech Presentation: N/A PLACENTA INFORMATION BABY A Placenta Delivery Time : 07/01/2017 15:07 Placenta Method of Delivery: Spontaneous Placenta Status: Delivered SCORES BABY A Heart Rate 1 min: >100 bpm Resp Effort 1 min: Good Cry Reflex Irritability 1 min: Cough or Sneeze or Pulls Away Muscle Tone 1 min: Active Motion Color 1 min: Body [place], Extremities Blue SCORE 1 MIN: 9 Heart Rate 5 min: >100 bpm Resp Effort 5 min: Good Cry Reflex Irritability 5 min: Cough or Sneeze or Pulls Away Muscle Tone 5 min: Active Motion Color 5 min: Body [place], Extremities Blue SCORE 5 MIN: 9 INFANT INFORMATION BABY A Gestational Age at Delivery: 35.5 Gestational Status: Outcome : Liveborn Infant Condition : Stable Infant Sex: Male IDENTIFICATION/MEDS BABY A ID Band Number: [id number] ID Band Location: Left Leg; Left Arm WEIGHT/LENGTH BABY A Infant Birthweight (gms): 2580 Weight (lb): 5 Infant Weight (oz): 11 CORD INFORMATION BABY A No. Cord Vessels: 3 Nuchal Cord : N/A Nuchal Cord Other: na True Knot: na Cord pH Baby Arterial: na Infant Cord pH Baby Venous: na Cord Blood Taken: Yes Banking/Donate Info: na Infant Suction: Mouth; Nose; Pharynx
[2017-07-02 06:23] LABS: HEMOGLOBIN 8.5 g/dL (12.0-16.0); MEAN CELL VOLUME 82.7 fl (81.0-99.0); MEAN CORPUSCULAR HEMOGLOBIN 26.5 pg (27.0-31.0); RBC 3.22 Mil/uL (3.80-5.20); RED CELL DISTRIBUTION WIDTH 13.7 % (11.5-14.5); WHITE BLOOD COUNT 16.4 K/uL (4.8-10.8)
--- NOTE | 2017-07-02 10:16 | OBPPN ---
Datetime: 07/02/2017 10:14 PP Pain Prov: Within normal limits PP Nausea Prov: Denies PP Flatus Prov: Yes PP Breasts Prov: Not Done PP Heart Prov: Normal PP Lungs Prov: Normal PP Abdomen/Uterus Prov: Normal PP Lochia Prov: Not Done PP Vulva/Perineum Prov: Not Done PP CVA Tenderness Prov: Normal PP Extremities Prov: Normal PP C/S Incision Prov: Normal PP Impression Prov: Normal progression PP Plan Prov: Continue present management PP Progress Note Prov: Patient doing well status post normal vaginal delivery without complaints rep orts minimal lochia pain well-controlled Vital signs stable afebrile Uterus firm below the umbilicus Extremities no Homans day #1 Ambulation, analgesia, regular diet Vital Signs Provider PP: Reviewed
--- NOTE | 2017-07-03 12:15 | OBDCSUM ---
Datetime: 07/03/2017 12:14 Discharged to, Provider: Home Follow up at, Provider: Malik Cai Instr Activity: Normal activity Disch Instr Diet: Regular Discharge Instructions, Provider: Routine instructions given Discharge Diagnosis, Provider: Term Delivered Discharge Time: 07/03/2017 12:14 Follow up in weeks, Provider: 6 weeks Disch Referrals: None Contraception discussed, Prov: Yes
--- NOTE | 2017-07-03 12:16 | OBPPN ---
Datetime: 07/03/2017 12:12 PP Pain Prov: Within normal limits PP Nausea Prov: Denies PP Flatus Prov: Yes PP BM Prov: Yes PP Breasts Prov: Normal PP Heart Prov: Normal PP Lungs Prov: Normal PP Abdomen/Uterus Prov: Normal PP Lochia Prov: Normal PP Vulva/Perineum Prov: Normal PP CVA Tenderness Prov: Normal PP Extremities Prov: Normal PP C/S Incision Prov: Not Applicable PP Progress Prov: Normal PP Comments Phys Exam Prov: Uterus firm, below umbilicus Deep calf tenderness bilaterally. PP Progress Note Prov: day #1 status post normal spontaneous vaginal delivery, recovering well. Discharge home today. Follow-up in office in 6 weeks for visit. Vital Signs Provider PP: Reviewed; Within Normal Limits
[2017-07-03 17:36] VITALS: BP 102/54; PULSE 73; RESP 20; TEMP 97.6; O2SAT 98
== END 2017-07-03 13:00 | disposition home or self-care (01) | DRG 775 ==
LOC: H.EROB2 13:28 → H.L&D 19:28 → H.OB/GYN 07-01 17:09
PROVIDERS: ADMIT Obstetrics & Gynecology Gynecology; ATTEND Obstetrics & Gynecology Gynecology
PROC: 4A1HXCZ Monitoring of Products of Conception, Cardiac Rate, External Approach (ICD-10-PCS; 2017-06-30)
PROC: 10E0XZZ Delivery of Products of Conception, External Approach (ICD-10-PCS; principal; 2017-07-01)
PROC: 0KQM0ZZ Repair Perineum Muscle, Open Approach (ICD-10-PCS; 2017-07-01)
DX: O60.14X0 Preterm labor third trimester with preterm delivery third trimester, not applicable or unspecified (principal); O70.1 Second degree perineal laceration during delivery; Z37.0 Single live birth; Z3A.35 35 weeks gestation of pregnancy; Z87.440 Personal history of urinary (tract) infections